=== PATIENT | male | born 1970 | race Caucasian/White ===

== ENCOUNTER 2021-04-11 19:03 | Emergency (ER) | payer OTHER ==
[~2021-04-11 19:03] MED LIST: NORCO 5-325 TA1 EACH PO; ROBAXIN750 MG PO
[2021-04-11] MEDS ORDERED: CYCLOBENZAPRINE10 MG PO (20:44)
[2021-04-11] MEDS ORDERED: NORCO 5-325 TA1 EACH PO (20:44)
[2021-04-11] MEDS ORDERED: NAPROXEN500 MG PO (20:44)
== END 2021-04-11 21:15 | disposition home or self-care (01) ==
LOC: FER 19:03
DX: S13.4XXA Sprain of ligaments of cervical spine, initial encounter (principal); S33.5XXA Sprain of ligaments of lumbar spine, initial encounter; I10 Essential (primary) hypertension; F17.200 Nicotine dependence, unspecified, uncomplicated; Z88.1 Allergy status to other antibiotic agents; Z91.040 Latex allergy status; V49.50XA Passenger injured in collision with unspecified motor vehicles in traffic accident, initial encounter; Y92.410 Unspecified street and highway as the place of occurrence of the external cause
CPT/HCPCS: 71250; 72125; 72128; 72131; J1170

== ENCOUNTER → 2022-01-22 | Day surgery (SDC) | payer OTHER ==
[~2022-01-22] VITALS: Ht 175.3 cm; Wt 119.3 kg
[~2022-01-22] MED LIST changes: +CARAFATE1 GM PO; +CRESTOR5 MG PO; +CYCLOBENZAPRINE10 MG PO; +HCTZ12.5 MG PO; +HYDRALAZINE25 MG PO; +LOPRESSOR50 MG PO; +NAPROXEN500 MG PO; +PROTONIX 40MG T40 MG PO; +TEGRETOL XR200 MG PO
[2022-01-22 07:09] LABS: HCT 44.5 % (42.0-52.0); HGB 15.1 g/dl (13.2-18.0); MCH 30.6 pg (25.0-31.0); MCHC 33.9 g/dL (32.0-36.0); MCV 90.1 fL (78.0-100.0); MPV 9.1 fL (6.0-9.5); RBC 4.94 M/uL (4.70-6.00); WBC 6.9 K/uL (4.0-10.5)
[2022-01-22 07:16] LABS: ALBUMIN 3.6 g/dL (3.4-5.0); BILIRUBIN - TOTAL 0.3 mg/dL (0.2-1.0); BUN/CREAT RATIO (CALC) 17.6 RATIO; CREATININE 0.74 mg/dL (0.67-1.17); GLOBULIN (CALCULATION) 3.2 g/dL; POTASSIUM 3.4 mmol/L (3.5-5.1); TOTAL PROTEIN 6.8 g/dL (6.4-8.2)
== END | disposition home or self-care (01) ==
LOC: FAS 06:01
PROVIDERS: Orthopaedic Surgery
DX: M75.121 Complete rotator cuff tear or rupture of right shoulder, not specified as traumatic (principal); M75.51 Bursitis of right shoulder; M77.9 Enthesopathy, unspecified; F31.9 Bipolar disorder, unspecified; I10 Essential (primary) hypertension; E78.5 Hyperlipidemia, unspecified; J45.909 Unspecified asthma, uncomplicated; Z79.899 Other long term (current) drug therapy
CPT/HCPCS: 36415; 71045; 80053; 93005; C1713; J0171; J1100; J1170; J2250; J2405; J2704; J2795; J3010; J7120